=== PATIENT | male | born 1970 | race Caucasian/White ===

== ENCOUNTER 2019-02-15 19:29 | Emergency (ER) | payer OTHER ==
[2019-02-15] MEDS ORDERED: LIDOCAINE 1% 10 ML VIAL INJ ONE (19:43)
[2019-02-15 19:48] VITALS: TEMP 97.8
[2019-02-15] MEDS ORDERED: TETANUS,DIPHTHERIA,PERTUSSIS 1 EA SYG IM ONE (19:48)
[2019-02-15] MEDS ORDERED: SULFA/TRIMETH 800/160 (DS) TAB 1 EA TAB PO ONE (19:48)
--- NOTE | 2019-02-15 20:10 | ED.PDOC ---
History of Present Illness - General Chief Complaint: Laceration Stated Complaint: hand laceration Time Seen by Provider: 02/15/19 19:37 Source: patient Exam Limitations: no limitations - History of Present Illness Initial Comments: the patient is a 48-year-old male presenting to the emergency room secondary to a 1-1/2 inch laceration to the hypothenar area of the left hand. he did this with a hunting knife while getting a deer.as occurred approximately 20 minutes prior to arrival. Estimated blood loss is probably 15 cc. He is up-to-date on his vaccines. He did cut into the hyperthenar muscle. No evidence of any tendon lacerations. Sensation appears to be grossly preserved. No other injury. He moves the hand well. Good vascular flow. Timing/Duration: momentarily Severity: moderate Improving Factors: nothing Worsening Factors: nothing Associated Symptoms: denies symptoms Allergies/Adverse Reactions: Allergies NO KNOWN ALLERGY Allergy (Verified 02/15/19 19:48) Home Medications: Ambulatory Orders Sulfa/Trimeth 800/160 (Ds) Tab [Bactrim DS Tab] 1 ea PO DAILY #7 tab 02/15/19 Review of Systems - Review of Systems Constitutional: States: no symptoms reported EENTM: States: no symptoms reported Respiratory: States: no symptoms reported Cardiology: States: no symptoms reported Gastrointestinal/Abdominal: States: no symptoms reported Genitourinary: States: no symptoms reported Musculoskeletal: States: no symptoms reported Skin: States: see HPI Neurological: States: no symptoms reported Endocrine: States: no symptoms reported All other Systems: No Change from Baseline Past Medical History (General) - Patient Medical History Hx Diabetes: No Hx MRSA: No Surgical History: appendectomy - Vaccination History Hx Tetanus, Diphtheria Vaccination: No Family Medical History - Family History Father Family History: Unknown Physical Exam - Physical Exam General Appearance: Alert, Comfortable, No apparent distress Eye Exam: bilateral normal Ears, Nose, Throat: hearing grossly normal Neck: full range of motion Respiratory: no respiratory distress, no accessory muscle use Cardiovascular/Chest: normal peripheral pulses, other - regular rate Peripheral Pulses: radial,right: 2+, radial,left: 2+ Rectal Exam: deferred Extremity: normal range of motion, normal capillary refill, other - see history of present illness Neurologic: calender wind up tender II-XII nml as tested, no motor/sensory deficits - very mild decreased sensation to the fifth digit but is grossly preserved. No area of obvious complete sensation loss., alert, normal mood/affect, oriented x 3 Skin Exam: normal color - laceration as per history of present illness. Comments: Vital Signs - 24 hr 02/15/19 19:45 Temperature 97.8 F Pulse Rate [ 85 Right] Respiratory 16 Rate Blood Pressure 177/124 [right] O2 Sat by Pulse 96 Oximetry Progress - Progress Progress: 02/15/19 20:11 the patient is a 48-year-old male presenting to the emergency room secondary to sustaining a 1&1/2 inch laceration to the hypothenar area of the left hand. After risks and benefits were explained, patient did agree to proceed with repair. The wound was first cleaned with hydrogen peroxide, then lidocaine without epinephrine 7 cc was used as local anesthetic. Subsequently 250 cc of normal saline were used to pressure irrigate the wound. Exploration shows no evidence of any tendon laceration. He did cut mildly into the hypothenar muscle. he does appear to be grossly neurovascularly intact with no loss of function. 10 sutures of 3-0 Ethilon were used for reapproximation. the patient tolerated the procedure well. He needs to keep the wound covered with a Band- Aid and triple antibiotic ointment. He is going to be placed on 7 days of Bactrim prophylactically with the first dose given tonight. ER warnings were given. Sutures need to remain in place for 10-12 days. [email or web address] [id number] Departure - Departure Clinical Impression: Accidental laceration Disposition: Discharge to Home or Self Care Condition: Fair Departure Forms: ED Discharge - Pt. Copy, Patient Portal Self Enrollment Instructions: DI for Laceration Repair, DI for Laceration Repair -- Simple Diet: regular diet Activity: increase activity as tolerated Prescriptions: Sulfa/Trimeth 800/160 (Ds) Tab [Bactrim DS Tab] 1 ea PO DAILY #7 tab Home Medications: Ambulatory Orders Sulfa/Trimeth 800/160 (Ds) Tab [Bactrim DS Tab] 1 ea PO DAILY #7 tab 02/15/19 Additional Instructions: the patient is a 48-year-old male presenting to the emergency room secondary to sustaining a 1&1/2 inch laceration to the hypothenar area of the left hand. 10 sutures of 3-0 Ethilon were used for reapproximation. He needs to keep the wound covered with a Band-Aid and triple antibiotic ointment. He is going to be placed on 7 days of Bactrim prophylactically with the first dose given tonight. ER warnings were given. Sutures need to remain in place for 10-12 days.
[2019-02-15] MEDS ORDERED: NEOMYCIN-BACITRACIN-POLYMYXIN 0.9 GM UD TOP ONE (20:15)
[2019-02-15 20:43] VITALS: BP 160/112; O2SAT 97
== END 2019-02-15 20:42 | disposition home or self-care (01) ==
LOC: ER 19:29
DX: S61.412A Laceration without foreign body of left hand, initial encounter (principal); W26.0XXA Contact with knife, initial encounter; Y92.9 Unspecified place or not applicable; Y93.89 Activity, other specified